=== PATIENT | female | born 1995 | race Caucasian/White ===

== ENCOUNTER 2016-11-27 20:02 | Emergency (ER) | payer BC ==
[~2016-11-27] VITALS: Ht 160 cm; Wt 63.5 kg
--- NOTE | 2016-11-27 20:05 | ED.ADGEN ---
Adult General Chief Complaint Chief Complaint Dysuria HPI HPI Patient is a 20 year old female who presents with dysuria and hematuria. She states it started this evening. She is sexually active she's had approximately 10 partner since the age of 13. She's never seen an [facility] physician. She denies any vaginal bleeding or lesions. She denies any pain or discomfort last she is urinating. She is placed her period last week. She denies any nausea vomiting or abdominal discomfort. Review of Systems Review of Systems Constitutional: Denies fever or chills [] Eyes: Denies change in visual acuity, redness, or eye pain [] HENT: Denies nasal congestion or sore throat [] Respiratory: Denies cough or shortness of breath [] Cardiovascular: No additional information not addressed in HPI [] GI: Denies abdominal pain, nausea, vomiting, bloody stools or diarrhea [] : Positive for hematuria and dysuria, denies any vaginal bleeding or discharge Musculoskeletal: Denies back pain or joint pain [] Integument: Denies rash or skin lesions [] Neurologic: Denies headache, focal weakness or sensory changes [] Endocrine: Denies polyuria or polydipsia [] Allergies Allergies Allergies Coded Allergies Type Severity Reaction Last Updated Verified No Known Drug Allergies 11/27/16 No Physical Exam Physical Exam Constitutional: Well developed, well nourished, no acute distress, non-toxic appearance. [] HENT: Normocephalic, atraumatic, bilateral external ears normal, oropharynx moist, no oral exudates, nose normal. [] Eyes: PERRLA, EOMI, conjunctiva normal, no discharge. [] Neck: Normal range of motion, no tenderness, supple, no stridor. [] Cardiovascular:Heart rate regular rhythm, no murmur [] Lungs & Thorax: Bilateral breath sounds clear to auscultation [] Abdomen pelvic exam: Bowel sounds normal, soft, no tenderness, no masses, no pulsatile masses. External genitalia normal, no lesions appreciated, no blood in the vault, no cervical motion tenderness or discharge noted. Skin: Warm, dry, no erythema, no rash. [] Back: No tenderness, no CVA tenderness. [] Extremities: No tenderness, no cyanosis, no clubbing, ROM intact, no edema. [] Neurologic: Alert and oriented X 3, normal motor function, normal sensory function, no focal deficits noted. [] Psychologic: Affect normal, judgement normal, mood normal. [] Current Patient Data Vital Signs Vital Signs Date Time Temp Pulse Resp B/P (MAP) Pulse Ox O2 Delivery O2 Flow Rate FiO2 11/27/16 21:10 98.2 69 18 120/60 (80) 98 Room Air Lab Results Laboratory Tests Test 11/27/16 20:45 11/27/16 20:56 11/27/16 22:33 11/27/16 22:43 Urine Collection Type Unknown Urine Color Yellow Urine Clarity Hazy Urine pH 5.5 Urine Specific [place] >=1.030 Urine Protein 100 mg/dl (NEG-TRACE) Urine Glucose (UA) Neg mg/dL (NEG) Urine Ketones (Stick) 15 mg/dL (NEG) Urine Blood Large (NEG) Urine Nitrite Pos (NEG) Urine Bilirubin Neg (NEG) Urine Urobilinogen Dipstick 1 mg/dL (0.2 mg/dL) Urine Leukocyte Esterase Small (NEG) Urine RBC 3-5 /HPF (0-2) Urine WBC 11-20 /HPF (0-4) Urine Squamous Epithelial Cells Occ /LPF Urine Amorphous Sediment Present /HPF Urine Bacteria Few /HPF (0-FEW) Urine Mucus Slight /LPF POC Urine HCG, Qualitative hcg negative (Negative) White Blood Count 11.3 x10^3/uL (4.0-11.0) H Red Blood Count 4.41 x10^6/uL (3.50-5.40) Hemoglobin 12.9 g/dL (12.0-15.5) Hematocrit 38.3 % (36.0-47.0) Mean Corpuscular Volume 87 fL (79-100) Mean Corpuscular Hemoglobin 29 pg (25-35) Mean Corpuscular Hemoglobin Concent 34 g/dL (31-37) Red Cell Distribution Width 13.6 % (11.5-14.5) Platelet Count 257 x10^3/uL (140-400) Neutrophils (%) (Auto) 63 % (31-73) Lymphocytes (%) (Auto) 30 % (24-48) Monocytes (%) (Auto) 5 % (0-9) Eosinophils (%) (Auto) 2 % (0-3) Basophils (%) (Auto) 0 % (0-3) Neutrophils # (Auto) 7.1 x10^3uL (1.8-7.7) Lymphocytes # (Auto) 3.4 x10^3/uL (1.0-4.8) Monocytes # (Auto) 0.6 x10^3/uL (0.0-1.1) Eosinophils # (Auto) 0.3 x10^3/uL (0.0-0.7) Basophils # (Auto) 0.0 x10^3/uL (0.0-0.2) POC Hemoglobin 12.9 gm/dL POC Hematocrit 38 % POC Sodium 140 mmol/L (135-145) POC Potassium 3.7 mmol/L (3.5-5.0) POC Chloride 104 mmol/L (98-110) POC Total CO2 23 mmol/L (23-32) Anion Gap 18 mmol/L (6-14) H POC Blood Urea Nitrogen 10 mg/dL (8-26) POC Creatinine 0.7 mg/dL (0.5-1.4) Glucose Level 124 mg/dL (60-99) H POC Ionized Calcium ([place]) 1.21 mmol/L (1.13-1.32) Microbiology 11/27/16 Wet Prep - Final, Complete Microbiology 11/27/16 Wet Prep - Final, Complete EKG EKG [] Radiology/Procedures Radiology/Procedures RUN DATE: 11/27/16 [facility] *LIVE* PAGE 1 RUN TIME: 2229 Specimen Inquiry PATIENT: EDMUND JARVIS ACCT: [id number] LOC: [facility] U : [id number] AGE/SX: 20/ ROOM: REG : 11/27/[address]: RYLIE TRIPATHI MD : 1995 BED: DIS : STATUS: REG ER TLOC: SPEC #: [id number] GINA: 11/27/16 STATUS: COMP REQ #: [id number] RECD: 11/27/[address]: RYLIE TRIPATHI MD SOURCE: VAGINAL ENTR: 11/27/[address]: EVANGELINA AVINA MD SPDESC: ORDERED: WET PREP COMMENTS: Has specimen been collected/obtained? Y Procedure Result WET PREP Final YEAST NONE SEEN TRICHOMONAS NONE SEEN CLUE CELLS CLUE CELLS PRESENT WBCS OCCASIONAL RBCS OCCASIONAL SQUAMOUS EPS OCCASIONAL END OF REPORT Course & Med Decision Making Course & Med Decision Making Pertinent Labs and Imaging studies reviewed. (See chart for details) Wet mount shows clue cells, UA shows positive nitrites. We'll discharge home with Advil 500 mg twice a day for 7 days for her bacterial vaginosis in addition to Bactrim for 3 days for UTI. She is to follow-up with [facility], return ER for worsening pain, fevers or other concerns. She is agreeable to the plan and being discharged in stable condition at this time. She is to follow-up with [facility], regarding remainder of her GC chlamydia results. Final Impression Final Impression UTI Bacterial vaginosis Problems: Dragon Disclaimer Dragon Disclaimer This electronic medical record was generated, in whole or in part, using a voice recognition dictation system. RYLIE TRIPATHI MD November 27, 2016 20:05
[2016-11-27 21:10] VITALS: BP 120/60
[2016-11-27 21:37] LABS: BACTERIA,URINE FEW /HPF (0-FEW); BILIRUBIN,URINE NEG (NEG); CLARITY,URINE HAZY; COLOR,URINE YELLOW; GLUCOSE,URINE NEG (NEG); NITRITE,URINE POS (NEG); UROBILINOGEN,URINE 1 mg/dL (0.2 mg/dL)
[2016-11-27 21:38] LABS: AMORPHOUS SEDIMENT,UR PRESENT /HPF; SQUAMOUS EPITHELIAL CELL,UR OCC /LPF
[2016-11-27 22:50] LABS: HEMOGLOBIN ISTAT 12.9 gm/dL; POTASSIUM ISTAT 3.7 mmol/L (3.5-5.0)
[2016-11-27 22:52] LABS: BASO % 0 % (0-3); EOS # 0.3 x10^3/uL (0.0-0.7); EOS % 2 % (0-3); HEMATOCRIT 38.3 % (36.0-47.0); HEMOGLOBIN 12.9 g/dL (12.0-15.5); LYMPH # 3.4 x10^3/uL (1.0-4.8); LYMPH % 30 % (24-48); MEAN CORPUSCULAR HEMOGLOBIN 29 pg (25-35); MEAN CORPUSCULAR HGB CONC 34 g/dL (31-37); MEAN CORPUSCULAR VOLUME 87 fL (79-100); MONO # 0.6 x10^3/uL (0.0-1.1); MONO % 5 % (0-9); NEUT # 7.1 x10^3uL (1.8-7.7); NEUT % 63 % (31-73); PLATELET COUNT 257 x10^3/uL (140-400); RED BLOOD COUNT 4.41 x10^6/uL (3.50-5.40); RED CELL DISTRIBUTION WIDTH 13.6 % (11.5-14.5); WHITE BLOOD COUNT 11.3 x10^3/uL (4.0-11.0)
[2016-11-27] MEDS ORDERED: SULF1TAB24 PO (22:54)
[2016-11-27] MEDS ORDERED: METR500T PO (22:54)
[2016-11-27 23:01] LABS: CALCIUM 8.9 mg/dL (8.5-10.1); CREATININE 0.8 mg/dL (0.6-1.0); GFR 92.4; POTASSIUM 3.8 mmol/L (3.5-5.1)
[2016-11-29 14:12] LABS: CHLAMYDIA PROBE Negative (Negative)
== END 2016-11-27 23:02 | disposition home or self-care (01) ==
LOC: ER 20:02
DX: N39.0 Urinary tract infection, site not specified (principal); N76.0 Acute vaginitis
CPT/HCPCS: 36415; 80047; 80048; 81001; 81025; 85027; 87086; 87491; 87591; 99284; Q0111